=== PATIENT | male | born 1985 | race African-American/Black ===

== ENCOUNTER 2016-08-27 20:22 | Emergency (ER) | payer OTHER ==
--- NOTE | ~2016-08-27 | CR173 ---
[facility] A Service of [facility] & [facility] RADIOLOGY TEXT RESULTS PATIENT: SANDHYA VILLAVICENCIO LOCATION: CFTX : 85 UNIT #: [id number] AGE: [address]: GIA ROMERO SEX: M ORDER DR: [id number] [facility] [address] [place] [place], [place] [address] [id number] E MR#: [id number] Acc #: [id number] NAME: SANDHYA VILLAVICENCIO : 1985 SEX: M STUDY DATE/TIME: 08/27/2016 20:13 UNIT: [facility] ROOM: STUDY DESCRIPTION: CR Knee 3 Views Rt Attending Physician: Gia Romero Aprn Ordering Physician: Gia Romero Aprn Primary Care Physician: Primary Care Physician No MEDICAL IMAGING REPORT This report is preliminary unless electronic signature is present EXAM Right knee series dated 08/27/2016. COMPARISON None. HISTORY Patient stepped in a hole 1 week ago. Pain and swelling in the right knee since then. FINDINGS 3 views of the right knee were obtained. No acute displaced fracture, dislocation or destructive bony mass. Mild joint effusion cannot be excluded. Soft tissues do not demonstrate any significant other abnormality. Dictated by... Grace Collado M.D. THIS IS AN ELECTRONICALLY VERIFIED REPORT Grace Collado M.D. at 08/29/2016 1:44 PM CPR/deepika TD: 08/28/2016 14:46 JOB #: [id number] MEDICAL IMAGING REPORT Page 1 of 1 COPY
== END 2016-08-27 22:25 | disposition home or self-care (01) ==
LOC: CFTX 20:22
DX: S83.91XA Sprain of unspecified site of right knee, initial encounter (principal); X50.1XXA Overexertion from prolonged static or awkward postures, initial encounter; Y92.9 Unspecified place or not applicable
CPT/HCPCS: 29515; 73562; 99283